=== PATIENT | male | born 1980 ===

== ENCOUNTER 2025-06-11 12:15 | Inpatient (IN) | payer OTHER ==
[~2025-06-11] VITALS: Ht 175.3 cm; Wt 86.2 kg
[2025-06-11 14:14] VITALS: BP 146/92
[2025-06-11 14:18] VITALS: BP 170/100
[2025-06-11] MEDS ORDERED: TOPROL XL100 M1 PO (14:19)
[2025-06-11] MEDS ORDERED: COZAAR100 MG PO (14:19)
[2025-06-18] MEDS ORDERED: CEFTRIAXONE SODIUM 2,000 MG VIAL IV ONE (12:15)
[2025-06-18] MEDS ORDERED: BUPIVACAINE HCL 30 ML VIAL IJ ONE (12:15)
[2025-06-18] MEDS ORDERED: METRONIDAZOLE/SODIUM CHLORIDE 500 MG/100 ML PIGGYBACK IV ONE (12:15)
[2025-06-18] MEDS ORDERED: LIDOCAINE HCL 1%/EPINEPHRINE 20ML VIAL IJ ONE (12:15)
[2025-06-18] MEDS ORDERED: 0.9 % SODIUM CHLORIDE 1,000 ML IV SCH (14:30)
[2025-06-18] MEDS ORDERED: SUGAMMADEX SODIUM 200 MG/2 ML VIAL IV ONE (14:30)
[2025-06-18] MEDS ORDERED: DEXTROSE 50 % IN WATER 0.5 G/ML VIAL IV PRN (14:30)
[2025-06-18] MEDS ORDERED: MORPHINE SULFATE 4 MG/ML CARTRIDGE IV PRN (14:30)
[2025-06-18] MEDS ORDERED: OxyCODONE HCL 5 MG TABLET (ROXICODONE) PO PRN (14:30)
[2025-06-18] MEDS ORDERED: ONDANSETRON HCL 2 MG/ML VIAL IV PRN (14:30)
[2025-06-18] MEDS ORDERED: MORPHINE SULFATE 4 MG/ML VIAL IV ONE (15:40)
[2025-06-18 16:37] LABS: BASO % 0.1 % (0.1-1.2); EOS # 0.00 (0.04-0.54); EOS % 0.0 % (0.7-7.0); LYMPH # 0.33 (1.18-3.74); LYMPH % 3.0 % (19.3-53.1); MEAN PLATELET VOLUME 9.30 fl (9.4-12.4); MONO # 0.51 (0.24-0.82); MONO % 4.6 % (4.7-12.5); NEUT # 10.24 (1.56-6.13); NEUT % 91.9 % (34.0-71.1); RED CELL DISTRIBUTION WIDTH 11.6 % (11.6-14.4)
[2025-06-18] MEDS ORDERED: GABAPENTIN 300 MG CAPSULE PO SCH (17:00)
[2025-06-18] MEDS ORDERED: HYOSCYAMINE SULFATE 0.125 MG TAB.SUBL SL SCH (17:00)
[2025-06-18] MEDS ORDERED: METRONIDAZOLE/SODIUM CHLORIDE 500 MG/100 ML PIGGYBACK IV SCH (17:00)
[2025-06-18 17:47] LABS: BUN CREA RATIO 16.0 (7.0-25.0); CREATININE SERUM 1.28 mg/dL (0.70-1.30); GFR 60.5; GLUCOSE FASTING 155.0 mg/dL (65-100); OSMOLALITY SERUM 287.0 MOSM/KG (275-295)
[2025-06-18] MEDS ORDERED: ACETAMINOPHEN 500 MG GEL..CAP PO SCH (20:00)
[2025-06-18] MEDS ORDERED: ENALAPRILAT DIHYDRATE 1.25 MG/ML VIAL IV PRN (20:30)
[2025-06-18] MEDS ORDERED: CELECOXIB 200 MG CAPSULE PO SCH (21:00)
[2025-06-18] MEDS ORDERED: FAMOTIDINE/PF 20 MG/2 ML VIAL IV PUSH SCH (21:00)
[2025-06-19 00:52] VITALS: BP 140/89; O2SAT 99
[2025-06-19 00:55] VITALS: BP 140/89; O2SAT 99
[2025-06-19 04:34] VITALS: BP 159/103
[2025-06-19 07:09] LABS: BUN CREA RATIO 14.0 (7.0-25.0); CREATININE SERUM 1.21 mg/dL (0.70-1.30); GFR 64.56; GLUCOSE FASTING 101.0 mg/dL (65-100); OSMOLALITY SERUM 285.0 MOSM/KG (275-295)
[2025-06-19 07:40] LABS: BASO % 0.1 % (0.1-1.2); EOS # 0.00 (0.04-0.54); EOS % 0.0 % (0.7-7.0); LYMPH # 0.51 (1.18-3.74); LYMPH % 4.9 % (19.3-53.1); MEAN PLATELET VOLUME 9.50 fl (9.4-12.4); MONO # 0.79 (0.24-0.82); MONO % 7.5 % (4.7-12.5); NEUT # 9.10 (1.56-6.13); NEUT % 86.9 % (34.0-71.1); RED CELL DISTRIBUTION WIDTH 11.6 % (11.6-14.4)
[2025-06-19 08:50] VITALS: BP 138/84; O2SAT 98
[2025-06-19] MEDS ORDERED: LOSARTAN POTASSIUM 100 MG TABLET PO SCH (09:00)
[2025-06-19] MEDS ORDERED: ENOXAPARIN SODIUM 40 MG/0.4 ML SYRINGE SUBCUTANEO SCH (17:00)
[2025-06-19 17:08] VITALS: BP 145/92; O2SAT 99
[2025-06-19 23:54] VITALS: BP 163/116; O2SAT 97
[2025-06-20] VITALS (9 sets, daily range): BP systolic 106–163; BP diastolic 69–103; O2SAT 88–98
[2025-06-20] MEDS ORDERED: ENALAPRILAT DIHYDRATE 2.5 MG/2 ML VIAL IV ONE (01:30)
[2025-06-20] MEDS ORDERED: hydrALAZINE HCL 20 MG VIAL IV ONE (03:45)
[2025-06-20] MEDS ORDERED: ENOXAPARIN SODIUM 40 MG/0.4 ML SYRINGE SUBCUTANEO SCH (09:00)
[2025-06-20] MEDS ORDERED: METOPROLOL SUCCINATE 100 MG TAB.SR.24H PO SCH (09:51)
[2025-06-20] MEDS ORDERED: hydrALAZINE HCL 20 MG VIAL IV NR (12:30)
[2025-06-20] MEDS ORDERED: AMLODIPINE BESYLATE 5 MG TABLET PO SCH (17:00)
[2025-06-21 00:34] VITALS: O2SAT 98
[2025-06-21 02:36] VITALS: BP 112/76; O2SAT 100
[2025-06-21 03:18] VITALS: O2SAT 98
[2025-06-21 06:52] LABS: BASO % 0.2 % (0.1-1.2); EOS # 0.06 (0.04-0.54); EOS % 0.5 % (0.7-7.0); LYMPH # 0.54 (1.18-3.74); LYMPH % 4.7 % (19.3-53.1); MEAN PLATELET VOLUME 9.50 fl (9.4-12.4); MONO # 0.85 (0.24-0.82); MONO % 7.3 % (4.7-12.5); NEUT # 10.09 (1.56-6.13); NEUT % 87.0 % (34.0-71.1); RED CELL DISTRIBUTION WIDTH 12.1 % (11.6-14.4)
[2025-06-21 07:38] LABS: BUN CREA RATIO 21.0 (7.0-25.0); CREATININE SERUM 1.49 mg/dL (0.70-1.30); GFR 50.77; GLUCOSE FASTING 89.0 mg/dL (65-100); OSMOLALITY SERUM 291.0 MOSM/KG (275-295)
[2025-06-21 08:00] VITALS: BP 120/86; O2SAT 99
[2025-06-21 08:09] VITALS: O2SAT 99
[2025-06-21 16:00] VITALS: BP 127/87; O2SAT 97
[2025-06-22 02:11] VITALS: BP 138/92; O2SAT 93
[2025-06-22 07:27] LABS: BASO % 0.4 % (0.1-1.2); EOS # 0.07 (0.04-0.54); EOS % 0.8 % (0.7-7.0); LYMPH # 0.73 (1.18-3.74); LYMPH % 8.7 % (19.3-53.1); MEAN PLATELET VOLUME 9.60 fl (9.4-12.4); MONO # 0.71 (0.24-0.82); MONO % 8.4 % (4.7-12.5); NEUT # 6.82 (1.56-6.13); NEUT % 81.1 % (34.0-71.1); RED CELL DISTRIBUTION WIDTH 11.9 % (11.6-14.4)
[2025-06-22 07:38] LABS: BUN CREA RATIO 29.0 (7.0-25.0); CREATININE SERUM 1.08 mg/dL (0.70-1.30); GFR 73.61; GLUCOSE FASTING 86.0 mg/dL (65-100); OSMOLALITY SERUM 289.0 MOSM/KG (275-295)
[2025-06-22 08:00] VITALS: BP 138/96; O2SAT 97
[2025-06-22] MEDS ORDERED: LOPERAMIDE HCL 2 MG CAPSULE PO SCH (09:00)
[2025-06-22] MEDS ORDERED: KETOROLAC TROMETHAMINE 30 MG VIAL IM NR (12:30)
[2025-06-22 16:20] LABS: URINE APPEARANCE Clear; URINE BILIRRUBIN Negative (NEGATIVE); URINE BLOOD Negative; URINE COLOR Yellow; URINE GLUCOSE Negative (NEGATIVE); URINE LEUKOCYTE Negative; URINE NITRATE Negative; URINE PROTEIN 30 (NEGATIVE); URINE UROBILINOGEN 0.2 E.U./dl
[2025-06-22 16:24] LABS: URINE BACTERIA 11.9 uL (0.0-1933); URINE CAST 2.93 uL (0.0-1.40); URINE EPITHELIAL CELLS 13.8 uL (0.0-38.8); URINE RBC 10.7 uL (0.0-20.8); URINE WBC 7.6 uL (0.0-23.2)
[2025-06-22 17:03] LABS: URINE KETONE 80 (NEGATIVE)
[2025-06-22 18:02] VITALS: BP 154/101; O2SAT 98
[2025-06-23 01:29] VITALS: BP 146/114; O2SAT 97
[2025-06-23 01:36] VITALS: BP 136/89
[2025-06-23 07:55] LABS: BUN CREA RATIO 32.0 (7.0-25.0); CREATININE SERUM 0.96 mg/dL (0.70-1.30); GFR 84.32; GLUCOSE FASTING 91.0 mg/dL (65-100); OSMOLALITY SERUM 284.0 MOSM/KG (275-295)
[2025-06-23 08:00] VITALS: BP 132/88; O2SAT 96
[2025-06-23 16:18] VITALS: BP 143/96; O2SAT 96
[2025-06-24 01:18] VITALS: BP 136/82; O2SAT 98
[2025-06-24 08:00] VITALS: BP 129/90; O2SAT 95
[2025-06-24] MEDS ORDERED: IMODIUM A-D2 MG PO (12:15)
[2025-06-24] MEDS ORDERED: CELEBREX200MG PO (12:15)
== END 2025-06-24 15:05 | disposition home or self-care (01) | DRG 330 ==
LOC: SURH 06-18 07:00 → O/R 06-18 08:00 → SURH 06-18 12:15
PROVIDERS: Internal Medicine; ADMIT Surgery; ATTEND Surgery
PROC: 0DTP4ZZ Resection of Rectum, Percutaneous Endoscopic Approach (ICD-10-PCS; 2025-06-18)
PROC: 0DTN4ZZ Resection of Sigmoid Colon, Percutaneous Endoscopic Approach (ICD-10-PCS; 2025-06-18)
PROC: 07BB4ZZ Excision of Mesenteric Lymphatic, Percutaneous Endoscopic Approach (ICD-10-PCS; 2025-06-18)
PROC: 0D1B4Z4 Bypass Ileum to Cutaneous, Percutaneous Endoscopic Approach (ICD-10-PCS; principal; 2025-06-18 07:00)
PROC: 4A12X4Z Monitoring of Cardiac Electrical Activity, External Approach (ICD-10-PCS; 2025-06-20)
PROC: BT43ZZZ Ultrasonography of Bilateral Kidneys (ICD-10-PCS; 2025-06-21)
DX: C20 Malignant neoplasm of rectum (principal); N17.9 Acute kidney failure, unspecified; D49.0 Neoplasm of unspecified behavior of digestive system; R59.0 Localized enlarged lymph nodes; K66.0 Peritoneal adhesions (postprocedural) (postinfection); R00.0 Tachycardia, unspecified; I12.9 Hypertensive chronic kidney disease with stage 1 through stage 4 chronic kidney disease, or unspecified chronic kidney disease; N18.9 Chronic kidney disease, unspecified; Z43.2 Encounter for attention to ileostomy; Z92.21 Personal history of antineoplastic chemotherapy; Z92.3 Personal history of irradiation